=== PATIENT | female | born 1985 | race Two or more races ===

== ENCOUNTER 2018-08-21 19:48 | Emergency (ER) | payer OTHER ==
[2018-08-21 19:58] VITALS: BP 132/74
--- NOTE | 2018-08-21 20:10 | UC ---
Throat Pain/Nasal Ernie HPI - HPI Summary HPI Summary: 32 yo female presents with a sore throat that began earlier today. She has not taken anything OTC for her discomfort. Denies sick contacts. She recently had a "cold" with sinus congestion and a dry cough, but these have improved. A coworker has been sick and was recently dx'd with strep - pt is concerned she might have strep. Denies fever, chills, SOB, rash, n/v. - History of Current Complaint Chief Complaint: UCGeneralIllness Stated Complaint: SORE THROAT Time Seen by Provider: 08/21/18 19:49 Hx Obtained From: Patient Hx Last Menstrual Period: 08/17/18 Onset/Duration: Sudden Onset Severity: Moderate Pain Intensity: 6 Pain Scale Used: 0-10 Numeric - Allergies/Home Medications Allergies/Adverse Reactions: Allergies Allergy/AdvReac Type Severity Reaction Status Date / Time No Known Allergies Allergy Verified 08/21/18 19:58 Home Medications: Home Medications NK [No Home Medications Reported] 08/21/18 [History Confirmed 08/21/18] PMH/Surg Hx/FS Hx/Imm Hx - Additional Past Medical History Additional PMH: None - Surgical History Surgical History: Yes Surgery Procedure, Year, and Place: right femur - Family History Known Family History: Positive: None - Social History Occupation: Employed Full-time Lives: With Family Alcohol Use: Weekly Substance Use Type: None Smoking Status (MU): Never Smoked Tobacco Review of Systems All Other Systems Reviewed And Are Negative: Yes Constitutional: Positive: Negative Skin: Positive: Negative Eyes: Positive: Negative ENT: Positive: Sore Throat Respiratory: Positive: Negative Cardiovascular: Positive: Negative Gastrointestinal: Positive: Negative Neurological: Positive: Negative Psychological: Positive: Negative Physical Exam - Summary Physical Exam Summary: GENERAL: NAD. WDWN. No pain distress. SKIN: No rashes, sores, lesions, or open wounds. HEENT: Head: AT/NC Eyes: EOM intact. Conjunctiva clear without inflammation or discharge. Ears: Hearing grossly normal. TMs intact, no bulging, erythema, or edema. Nose: Nasal mucosa pink and moist. NTTP maxillary and frontal sinus. Throat: Posterior oropharynx without exudates, erythema, or tonsillar enlargement. Uvula midline. NECK: Supple. Nontender. No lymphadenopathy. CHEST: CTAB. No r/r/w. No accessory muscle use. Breathing comfortably and in no distress. CV: RRR. Without m/r/g. Pulses intact. Cap refill <2seconds NEURO: Alert. PSYCH: Age appropriate behavior. Triage Information Reviewed: Yes Vital Signs: Initial Vital Signs Temp 98.2 F 08/21/18 19:54 Pulse 60 08/21/18 19:54 Resp 18 08/21/18 19:54 BP 132/74 08/21/18 19:54 Pulse Ox 100 08/21/18 19:54 Laboratory Tests 08/21/18 20:00 Group A Strep Rapid Negative Vital Signs Reviewed: Yes Throat Pain/Nasal Course/Dx - Course Course Of Treatment: POC strep negative. Suspect viral pharyngitis. Advised to take tylenol/ibuprofen for discomfort and f/u prn - Differential Dx/Diagnosis Provider Diagnosis: Viral pharyngitis Discharge - Sign-Out/Discharge Documenting (check all that apply): Patient Departure All imaging exams completed and their final reports reviewed: No Studies - Discharge Plan Condition: Stable Disposition: HOME Patient Education Materials: Pharyngitis (ED) Referrals: No Primary Care Phys,NOPCP [Primary Care Provider] - Additional Instructions: If you develop a fever, shortness of breath, chest pain, new or worsening symptoms - please call your PCP or go to the ED. - Billing Disposition and Condition Condition: STABLE Disposition: Home
== END 2018-08-21 20:24 | disposition home or self-care (01) ==
LOC: UCEAST 19:48
DX: J02.8 Acute pharyngitis due to other specified organisms (principal)
CPT/HCPCS: 87651; 99211; G0463

== ENCOUNTER 2019-04-11 10:37 | Emergency (ER) | payer OTHER ==
[2019-04-11 11:01] VITALS: BP 121/68
--- NOTE | 2019-04-11 12:14 | UC ---
Lower Extremity/Ankle HPI - HPI Summary HPI Summary: jumped off step at gym yesterday am and twisted R ankle. was able to walk after injury with pain, has iced and elevated foot but today very swollen, painful and black and blue. - History of Current Complaint Chief Complaint: UCLowerExtremity Stated Complaint: ANKLE INJURY Time Seen by Provider: 04/11/19 11:29 Hx Obtained From: Patient Hx Last Menstrual Period: currently ?: No Onset/Duration: Sudden Onset Severity Initially: Moderate Severity Currently: Mild Pain Intensity: 1 Aggravating Factor(s): Standing, Ambulation Alleviating Factor(s): Rest, Elevation, Ice Able to Bear Weight: Yes - Allergies/Home Medications Allergies/Adverse Reactions: Allergies Allergy/AdvReac Type Severity Reaction Status Date / Time No Known Allergies Allergy Verified 04/11/19 11:00 Home Medications: Home Medications Levonorgestrel (Iud) [Mirena IUD] 20 mcg IU 04/11/19 [History] PMH/Surg Hx/FS Hx/Imm Hx Previously Healthy: Yes - Surgical History Surgical History: Yes Surgery Procedure, Year, and Place: right femur w/ gloria - Family History Known Family History: Positive: None - Social History Occupation: Employed Full-time Lives: With Family Alcohol Use: Weekly Substance Use Type: None Smoking Status (MU): Never Smoked Tobacco Review of Systems All Other Systems Reviewed And Are Negative: Yes Constitutional: Positive: Negative Skin: Positive: Bruising - R ankle Respiratory: Positive: Negative Cardiovascular: Positive: Negative Musculoskeletal: Positive: Decreased ROM - R ankle Psychological: Positive: Negative Is Patient Immunocompromised?: No Physical Exam Triage Information Reviewed: Yes Appearance: Well-Appearing, No Pain Distress, Well-Nourished Vital Signs: Initial Vital Signs Temp 98.8 F 04/11/19 10:55 Pulse 60 04/11/19 10:55 Resp 14 04/11/19 10:55 BP 121/68 04/11/19 10:55 Pulse Ox 98 04/11/19 10:55 Vital Signs Reviewed: Yes Respiratory Exam: Normal Respiratory: Positive: Lungs clear Cardiovascular Exam: Normal Cardiovascular: Positive: RRR Musculoskeletal: Positive: ROM Limited @, Other: - Right ankle and lateral fot swollen, ecchymotic, tender Neurological Exam: Normal Neurological: Positive: Alert Psychological Exam: Normal Skin: Negative: Rashes Diagnostics - Radiology No standard instances Radiology Interpretation Completed By: Radiologist - no fracture foot or ankle Lower Extremity Course/Dx - Differential Dx/Diagnosis Differential Diagnosis/HQI/PQRI: Fracture (Closed), Sprain, Strain Provider Diagnosis: Ankle sprain Discharge - Sign-Out/Discharge Documenting (check all that apply): Patient Departure All imaging exams completed and their final reports reviewed: Yes - no fracture R foot or ankle - Discharge Plan Condition: Good Disposition: HOME Patient Education Materials: Ankle Sprain (ED) Forms: *Work Release Referrals: No Primary Care Phys,NOPCP [Primary Care Provider] - Randi Torres MD [Medical Doctor] - (call tomorrow for appointment for recheck) Additional Instructions: ice and elevate your leg use siddhartha and splint and splint when ambulating use crutches for 2-3 days Ibuprofen 600mg every 6 hours as needed for pain - Billing Disposition and Condition Condition: GOOD Disposition: Home
== END 2019-04-11 12:30 | disposition home or self-care (01) ==
LOC: UCEAST 10:37
DX: S93.401A Sprain of unspecified ligament of right ankle, initial encounter (principal); X50.9XXA Other and unspecified overexertion or strenuous movements or postures, initial encounter; Y92.480 Sidewalk as the place of occurrence of the external cause
CPT/HCPCS: 99213; G0463